=== PATIENT | female | born 1950 | race Caucasian/White ===

== ENCOUNTER → 2016-03-15 | Outpatient (CLI) | payer OTHER | LOC: CT 08:00 → MMPC 12:37 → CT 12:37 | PROVIDERS: ATTEND Surgery | DX: R10.11 Right upper quadrant pain (principal); K62.5 Hemorrhage of anus and rectum; Z86.010 Personal history of colon polyps | CPT/HCPCS: 99203; G0463 ==

== ENCOUNTER → 2016-03-21 | Outpatient (CLI) | payer OTHER ==
--- NOTE | 2016-03-21 13:58 | DI ---
CT ABDOMEN SCAN WITH IV CONTRAST, 03/21/2016 9:02 AM : Clinical History: Upper abdominal pain. Previous Exam: None at this facility. Scans are performed from the lower lung bases through the liver and kidneys with IV contrast. 50 ml o f Isovue 300 was injected IV. The patient performed a modified "sit up" maneuver and the Valsalva man euver during the scans. The lung bases are clear. The liver is normal. The patient is status post cholecystectomy. The common hepatic and common bile ducts measure 9 mm and 7 mm in diameter, respectively. There is no abnormali ty of the spleen, pancreas, and adrenal glands. Both kidneys are normal in size, shape, position and contour. There is no hydronephrosis or hydroureter. No renal or ureteral calculi are present. There a re no abnormal retrocrural or periaortic nodes. No ascites is present. There is no epigastric hernia. READING: Normal CT abdomen scan. CT PELVIS SCAN WITH IV CONTRAST, 03/21/2016 9:02 AM: Clinical History: See above. Previous Exam: None at this facility. Scans are performed from just superior to the umbilicus to the symphysis pubis with IV contrast. This is the same bolus of contrast used for the CT scans of the abdomen. Scans through the lower abdomen and pelvis show no masses or abnormal fluid collections. There is no adenopathy. The appendix is not visualized but there is no inflammatory mass either in the cecal tip or in the right lower quadrant. The small bowel, terminal ileum, and ileocecal valve are normal. The colon is also normal. There is a very small umbilical hernia through which only mesenteric fat has he rniated. The patient is status post hysterectomy and bilateral salpingo-oophorectomy. READING: Normal CT scan of the pelvis.
== END ==
LOC: CT 08:55 → LAB 08:55
PROVIDERS: ATTEND Surgery
DX: R10.11 Right upper quadrant pain (principal); K62.5 Hemorrhage of anus and rectum; Z86.010 Personal history of colon polyps
CPT/HCPCS: 36415; 74177; 82565; 84520

== ENCOUNTER → 2016-03-22 | Outpatient (CLI) | payer OTHER | LOC: MMPC 11:11 | PROVIDERS: ATTEND Surgery | DX: R19.4 Change in bowel habit (principal); K62.5 Hemorrhage of anus and rectum; R19.7 Diarrhea, unspecified | CPT/HCPCS: 99213; G0463 ==

== ENCOUNTER 2016-03-31 09:05 | Day surgery (SDC) | payer OTHER ==
[~2016-03-31 09:05] MED LIST: LIDOCAINE W/ SODIUM BICARB 0.5 ML SYR ONE; Lactated Ringers 1,000 ML PRIMARY IV ONE; fentaNYL Inj 100 MCG/2 ML VIAL ONE
--- NOTE | 2016-03-31 10:39 | GEN.OPNOTE ---
Colonoscopy Procedure Note Surgery Date: 03/31/16 Preoperative Diagnosis: Change in bowel habits. Diarrhea. Bright red blood per rectum. Postoperative Diagnosis: Same. Large polyp at 30 cm from the anal verge. Diverticulosis. Procedure: Complete colonoscopy with multiple random biopsies and hot snare polypectomy at 30 cm. Surgeon: Jamie Spencer MD Anesthesia Provider: Jack Miranda CRNA Anesthesia Type: MAC Indications: See preoperative diagnosis. Findings: Prep : [Good] Cecum : [Normal.] Ascending : [Normal. Random biopsies taken] Transverse : [Normal. Random biopsies taken] Sigmoid : [Random biopsies taken. Diverticulosis. Large pedunculated polyp at 30 cm.] Rectum : [Normal. Random biopsies taken. Small rectal polyp biopsied and destroyed.] Digital Rectal Exam : [Hemorrhoids otherwise normal.] A lubricated flexible colonoscope was inserted and passed to the blind end of the cecum. The blind end of the cecum and ileocecal valve were clearly seen. Air was aspirated as the scope was withdrawn. Random biopsies were taken from the right colon, transverse colon, sigmoid colon and rectum. There was diverticulosis in the sigmoid:. There was a pedunculated polyp. It was removed with a hot snare. I went back and took approximately a centimeter of the stalk as well. The stalk was cauterized after final resection. Specimens were retrieved. There was another polyp in the rectum which was biopsied and destroyed with the cold biopsy forceps. Random rectal biopsies were taken and then the scope was withdrawn completing the procedure. Patient tolerated the procedure well without complication. She was taken to outpatient surgery in stable condition. Follow-up will be with my office on an as-needed basis. We will call the biopsy results and plan therapy and follow-up accordingly. She will need a follow-up colonoscopy in one to 2 years pending pathologic analysis.
[2016-03-31 11:31] VITALS: RESP 20; TEMP 97.7
== END 2016-03-31 11:14 | disposition home or self-care (01) ==
LOC: SDSC 09:05
PROVIDERS: ATTEND Surgery
DX: R19.4 Change in bowel habit (principal); K62.5 Hemorrhage of anus and rectum; R19.7 Diarrhea, unspecified; K62.0 Anal polyp; K57.90 Diverticulosis of intestine, part unspecified, without perforation or abscess without bleeding
CPT/HCPCS: 45385; J2704; J3010; J7120

== ENCOUNTER → 2016-08-14 | Outpatient (CLI) | payer OTHER ==
[2016-08-14 07:25] LABS: HEMOGLOBIN A1C 5.73 % (4.2-6.0)
[2016-08-14 07:55] LABS: BLOOD UREA NITROGEN 15 mg/dL (7-22); BUN/CREATININE RATIO 16.66 (6-20); CALCIUM 8.9 mg/dL (8.7-10.7); CHOL/HDL RATIO 3.06 RATIO (0-4.0); EST GLOMERULAR FILTRATION > 60 (>60 ml/min/1.73m(2)); HDL CHOLESTEROL 49 mg/dL (40-150); SERUM ALBUMIN 4.2 g/dL (3.5-4.8); SERUM CHOLESTEROL 150 mg/dL (120-200)
[2016-08-14 08:11] LABS: CREATININE, URINE 212.4 MG/DL (15-500)
--- NOTE | 2016-08-14 10:47 | PE ---
[facility] Interpretive Statements [email or web address]
== END ==
LOC: LAB 07:04
PROVIDERS: ATTEND Internal Medicine
DX: E11.9 Type 2 diabetes mellitus without complications (principal); E78.5 Hyperlipidemia, unspecified; E03.9 Hypothyroidism, unspecified; R53.83 Other fatigue; R05 Cough; R06.00 Dyspnea, unspecified; G47.30 Sleep apnea, unspecified; K42.9 Umbilical hernia without obstruction or gangrene; E66.01 Morbid (severe) obesity due to excess calories
CPT/HCPCS: 80053; 80061; 82043; 82550; 83036; 84443; 94060; 99214; G0463

== ENCOUNTER → 2016-10-12 | Outpatient (CLI) | payer OTHER | LOC: SLEEP LAB 21:04 | PROVIDERS: ATTEND Internal Medicine | DX: G47.33 Obstructive sleep apnea (adult) (pediatric) (principal); G47.34 Idiopathic sleep related nonobstructive alveolar hypoventilation | CPT/HCPCS: 95811 ==

== ENCOUNTER → 2016-10-19 | Outpatient (CLI) | payer OTHER | LOC: SLEEP LAB 10-18 20:37 | PROVIDERS: ATTEND Internal Medicine | DX: G47.33 Obstructive sleep apnea (adult) (pediatric) (principal); G47.34 Idiopathic sleep related nonobstructive alveolar hypoventilation | CPT/HCPCS: 95811 ==